=== PATIENT | female | born 1985 | race Caucasian/White ===

== ENCOUNTER → 2016-11-09 | Outpatient (CLI) | payer OTHER ==
[~2016-11-09] MED LIST: BACTRIM DS 8001 TA1 PO; HYDROCODONE BIT1 T11 PO; MIRTAZAPINE15 M2 PO; NKHM; OVRAL-21 50 MCG1 TAB PO; PERCOCET 325 MG1 TA2 PO; REMERON15 M2 PO; VITAMIN D50000 I3 PO
[2016-11-09 10:32] LABS: BASO % 0.5 % (0.0-1.0); EOS # 0.1 10*3/uL (0.0-0.4); EOS % 1.1 % (1.0-4.0); HEMATOCRIT 43.4 % (37.0-47.0); HEMOGLOBIN 13.9 g/dl (12.0-16.0); LYMPH # 2.6 10*3/uL (1.3-4.4); LYMPH % 39.9 % (27.0-41.0); MEAN CELL VOLUME 81.9 fl (81.0-99.0); MEAN CORPUSCULAR HGB 26.2 pg (27.0-31.0); MEAN PLATELET VOLUME 9.7 fl (9.6-12.3); MONO # 0.4 10*3/uL (0.1-1.0); MONO % 5.8 % (3.0-9.0); NEUT # 3.4 10*3/uL (2.3-7.9); NEUT % 52.4 % (47.0-73.0); PLATELET COUNT AUTOMATED 341 10*3/uL (130-400); RED CELL DISTRI WIDTH 14.9 % (0-14.5); WHITE BLOOD COUNT 6.5 10*3/uL (4.8-10.8)
[2016-11-09 11:00] LABS: ALBUMIN 3.5 gm/dl (3.1-4.5); ALKALINE PHOSPHATASE 81 U/L (45-117); BILIRUBIN, TOTAL 0.5 mg/dl (0.2-1.0); BUN 8 mg/dl (7-24); CARBON DIOXIDE 29 mmol/L (21-32); CHLORIDE 106 mmol/L (98-107); CHOLESTEROL 172 mg/dL (<200); EST GLOM FILT AFRICAN AMERICAN > 60 ml/min; GLUCOSE 97 mg/dL (65-99); HDL CHOLESTEROL 64 mg/dl (40-60); IRON 71 ug/dL (50-170); IRON SATURATION 18 %; LDL CHOLESTEROL 93 mg/dL (9-159); SGOT/AST 14 IU/L (3-35); SGPT/ALT 17 U/L (12-78); SODIUM 139 mmol/L (136-145); TOTAL PROTEIN 7.7 gm/dL (6.4-8.2); TRIGLYCERIDES 73 mg/dl (<150); UIBC 310 ug/dL (110-365); VLDL CHOLESTEROL 15 mg/dL (6-40)
[2016-11-09 11:02] LABS: HEMOGLOBIN A1c 5.2 % (4.8-5.6)
[2016-11-09 11:11] LABS: VITAMIN D, 25-HYDROXY 31.7 ng/mL (30-100)
[2016-11-09 11:12] LABS: FOLIC ACID 11.9 ng/mL (>5.38)
== END | disposition home or self-care (01) ==
LOC: LAB 10:08
PROVIDERS: Nurse Practitioner Family
DX: E66.9 Obesity, unspecified (principal); R53.83 Other fatigue; F17.200 Nicotine dependence, unspecified, uncomplicated

== ENCOUNTER 2017-05-14 21:13 | Emergency (ER) | payer OTHER ==
[~2017-05-14] VITALS: Ht 157.4 cm; Wt 97.5 kg
[2017-05-14] MEDS ORDERED: CLINDAMYCIN HC300 MG PO (21:39)
== END 2017-05-14 21:42 | disposition home or self-care (01) ==
LOC: ED 21:13
DX: K08.89 Other specified disorders of teeth and supporting structures (principal); F17.200 Nicotine dependence, unspecified, uncomplicated

== ENCOUNTER → 2020-06-17 | Outpatient (CLI) | payer OTHER ==
[~2020-06-17] MED LIST changes: +CLINDAMYCIN HC300 MG PO
== END | disposition home or self-care (01) ==
LOC: COVID19 16:24
PROVIDERS: ATTEND Internal Medicine
DX: Z20.828 Contact with and (suspected) exposure to other viral communicable diseases (principal)

== ENCOUNTER 2021-02-17 05:50 | Emergency (ER) | payer OTHER ==
[~2021-02-17] VITALS: Ht 160 cm; Wt 135.6 kg
[2021-02-17] MEDS ORDERED: TESSALON PERLE100 MG PO (07:31)
[2021-02-17] MEDS ORDERED: AVPAK AZITHROM250 M1 PO (07:31)
== END 2021-02-17 08:13 | disposition home or self-care (01) ==
LOC: ED 05:50
DX: J40 Bronchitis, not specified as acute or chronic (principal); Z20.822 Contact with and (suspected) exposure to COVID-19

== ENCOUNTER 2021-10-06 13:27 | Emergency (ER) | payer OTHER ==
[~2021-10-06] VITALS: Wt 132.0 kg
[~2021-10-06 13:27] MED LIST changes: +AVPAK AZITHROM250 M1 PO; +TESSALON PERLE100 MG PO
[2021-10-06 14:10] LABS: BASO % 0.3 % (0.0-1.0); EOS # 0.1 10*3/uL (0.0-0.4); EOS % 0.6 % (1.0-4.0); HEMATOCRIT 46.2 % (37.0-47.0); LYMPH # 2.7 10*3/uL (1.3-4.4); LYMPH % 25.8 % (27.0-41.0); MEAN CELL VOLUME 80.8 fl (81.0-99.0); MEAN CORPUSCULAR HGB 26.2 pg (27.0-31.0); MEAN CORPUSCULAR HGB CONC 32.5 g/dl (33.0-37.0); MEAN PLATELET VOLUME 9.4 fl (9.6-12.3); MONO # 0.5 10*3/uL (0.1-1.0); MONO % 4.7 % (3.0-9.0); NEUT # 7.1 10*3/uL (2.3-7.9); NEUT % 68.4 % (47.0-73.0); PLATELET COUNT AUTOMATED 452 10*3/uL (130-400); RED BLOOD COUNT 5.72 10*6/uL (4.10-5.10); RED CELL DISTRI WIDTH 13.9 % (0-14.5); WHITE BLOOD COUNT 10.4 10*3/uL (4.8-10.8)
[2021-10-06 14:20] LABS: BILIRUBIN Negative (Negative); BLOOD Negative (Negative); CLARITY Cloudy (Clear); COLOR Yellow (Yellow); GLUCOSE Negative (Negative); KETONE Trace (Negative); LEUKO ESTERASE 1+ (Negative); NITRITE Negative (Negative); SPECIFIC GRAVITY >= 1.030 (1.001-1.030)
[2021-10-06 14:32] LABS: ALKALINE PHOSPHATASE 98 U/L (45-117); BUN 9 mg/dl (7-24); CHLORIDE 104 mmol/L (98-107); CREATININE 0.64 mg/dL (0.55-1.02); LIPASE 88 U/L (73-393); POTASSIUM 3.8 mmol/L (3.5-5.1); SGOT/AST 23 IU/L (3-35); SGPT/ALT 34 U/L (12-78); SODIUM 138 mmol/L (136-145); TOTAL PROTEIN 8.5 gm/dL (6.4-8.2)
[2021-10-06 14:35] LABS: BACTERIA 3+; WBC 16-20 wbc/hpf (0-5)
[2021-10-06] MEDS ORDERED: CEPHALEXIN500 M1 PO (14:50)
== END 2021-10-06 15:02 | disposition home or self-care (01) ==
LOC: ED 13:27
PROVIDERS: Nurse Practitioner Family
DX: N39.0 Urinary tract infection, site not specified (principal); E86.0 Dehydration; Z98.51 Tubal ligation status

== ENCOUNTER 2023-08-31 10:11 | Emergency (ER) | payer OTHER ==
[~2023-08-31] VITALS: Ht 162.5 cm
[~2023-08-31 10:11] MED LIST changes: +CEPHALEXIN500 M1 PO
[2023-08-31] MEDS ORDERED: FAMOTIDINE 50 ML IV ONE (10:50)
[2023-08-31] MEDS ORDERED: methylPREDNISolone sod succ 125 MG VIAL IV ONE (10:50)
[2023-08-31] MEDS ORDERED: diphenhydrAMINE hydrochloride 50 MG/ML VIAL IV ONE (10:50)
[2023-08-31] MEDS ORDERED: PREDNISONE50 MG PO (12:58)
== END 2023-08-31 13:17 | disposition home or self-care (01) ==
LOC: ED 10:11
DX: L30.9 Dermatitis, unspecified (principal); Z98.51 Tubal ligation status

== ENCOUNTER 2024-03-20 08:59 | Emergency (ER) | payer OTHER ==
[~2024-03-20 08:59] MED LIST changes: +PREDNISONE50 MG PO
[2024-03-20] MEDS ORDERED: AVPAK AZITHROM250 M1 PO (10:13)
== END 2024-03-20 10:20 | disposition home or self-care (01) ==
LOC: ED 08:59
DX: J32.9 Chronic sinusitis, unspecified (principal); Z20.822 Contact with and (suspected) exposure to COVID-19; F41.9 Anxiety disorder, unspecified; F32.A Depression, unspecified; Z98.51 Tubal ligation status

== ENCOUNTER 2024-11-03 15:59 | Emergency (ER) | payer OTHER ==
[~2024-11-03] VITALS: Ht 165.1 cm; Wt 145.1 kg
[2024-11-03] MEDS ORDERED: PREDNISONE20 M1 PO ×2 (18:49→18:54)
[2024-11-03] MEDS ORDERED: methylPREDNISolone sod succ 125 MG VIAL IM ONE (18:55)
[2024-11-03] MEDS ORDERED: Water, Sterile 10 ML VIAL ONE (19:14)
== END 2024-11-03 18:56 | disposition home or self-care (01) ==
LOC: ED 15:59
DX: M25.461 Effusion, right knee (principal); L20.9 Atopic dermatitis, unspecified; M79.661 Pain in right lower leg; F32.A Depression, unspecified; E66.9 Obesity, unspecified; Z79.899 Other long term (current) drug therapy; Z79.2 Long term (current) use of antibiotics; Z68.35 Body mass index [BMI] 35.0-35.9, adult